=== PATIENT | male | born 1945 | race Caucasian/White ===

== ENCOUNTER 2020-12-07 14:09 | Outpatient (CLI) | payer MEDICARE, SELFPAY ==
--- NOTE | ~2020-12-07 | XR_ITS ---
XR hip BI wo pelvis DATE: 12/07/2020 14:41 INDICATION: Posterior right hip pain. No known injury. TECHNIQUE: AP and lateral views of each hip COMPARISON: 04/15/2018 right hip MRI FINDINGS: Moderate osteopenia. Subtle chondrocalcinosis of the right hip is suggested. Mild right hip osteoarthritis. No fracture or dislocation, avascular necrosis or bone destruction of either hip is evident. Normal alignment at the pubic symphysis and sacroiliac joints. IMPRESSION: Moderate osteopenia Mild right hip osteoarthritis Reviewed, dictated and finalized at location A.
== END 2020-12-07 14:10 | disposition home or self-care (01) ==
LOC: CHSIMG 14:13
PROVIDERS: PCP Internal Medicine; Visit Provider Internal Medicine
DX: M25.552 Pain in left hip (principal); M25.551 Pain in right hip
CPT/HCPCS: 73521

== ENCOUNTER 2020-12-27 09:28 | Outpatient (CLI) | payer MEDICARE, SELFPAY ==
[2020-12-27 09:41] LABS: Mean Corpuscular HGB Conc 33.3 g/dL (32.0-36.0); Mean Corpuscular Hemoglobin 31.6 pg (27.0-31.0); Mean Corpuscular Volume 94.7 fL (78.0-102.0); Mean Platelet Volume 9.8 fl (8.7-11.0); Platelet Count Result 194 K/mm3 (150-420); Red Blood Count 4.75 M/mm3 (4.70-6.10); Red Cell Distribution Width 13.4 % (11.6-14.4); White Blood Count 3.7 K/mm3 (4.8-10.8)
[2020-12-27 10:14] LABS: Band Neutrophils Percent 1 % (0-6); Basophils Percent Manual 0 % (0-1); Eosinophils Absolute Manual 0.18 K/mm3 (0.02-0.5); Eosinophils Percent Manual 5 % (1-6); Lymphocytes Absolute Manual 1.33 K/mm3 (1.1-4.5); Lymphocytes Percent Manual 36 % (18-44); Monocytes Percent Manual 11 % (3-9); Neutrophils Absolute Manual 1.77 K/mm3 (1.3-6.7); Neutrophils Percent Manual 47 % (46-73); Platelet Estimate Adequate (Adequate); Total Cells Counted 100
[2020-12-27 10:19] LABS: Alanine Aminotransferase 28 U/L (16-63); Albumin Level 3.8 g/dL (3.4-5.0); Alkaline Phosphatase 83 U/L (46-116); Anion Gap 9 mmol/L (8-16); Aspartate Amino Transferase 17 U/L (15-37); Bilirubin,Total 0.6 mg/dL (0.00-1.00); Blood Urea Nitrogen 20 mg/dL (7-18); Carbon Dioxide 28 mmol/L (21-32); Chloride 102 mmol/L (98-108); Cholesterol 191 mg/dL (0-200); Estimated Glomerular Filt Rate > 60; Glucose 100 mg/dL (70-99); HDL Direct 75 mg/dL (40-60); LDL Cholesterol Calculated 107 mg/dL (<130); Osmolality Calculated 290 mOsm/kg (285-295); Prostate Specific Antigen 2.5 ng/mL (< OR = 4.0); Sodium 139 mmol/L (136-145); Total Protein 7.2 g/dL (6.4-8.2); Triglycerides 43 mg/dL (0-150)
[2020-12-27 10:20] LABS: CRP < 0.2 mg/dL (0.0-0.9)
[2020-12-27 10:48] LABS: Erythrocyte Sedimentation Rate 12 mm/hr (0-20)
[2020-12-31 19:45] LABS: Testosterone Free 83.7 pg/mL (30.0-135.0); Testosterone Total 675 ng/dL (250-1100)
== END 2020-12-27 09:29 | disposition home or self-care (01) ==
LOC: CHSLAB 09:30
PROVIDERS: PCP Internal Medicine; Visit Provider Internal Medicine
DX: Z00.00 Encounter for general adult medical examination without abnormal findings (principal); N52.9 Male erectile dysfunction, unspecified; Z12.5 Encounter for screening for malignant neoplasm of prostate; M25.551 Pain in right hip
CPT/HCPCS: 36415; 80053; 80061; 84153; 84402; 84403; 85025; 85652; 86140; G0103

== ENCOUNTER 2021-01-06 10:04 | Outpatient (RCR) | payer MEDICARE, SELFPAY ==
--- NOTE | 2021-01-06 12:06 | PTOPEVAL ---
Thank you for referring Noe Foreman to [facility] The patient is scheduled to be seen for therapy? ____x/week for ___ weeks. Please review, sign, date and return this plan of care PAOLO. I agree with and certify that the following plan of care is medically necessary. Referring Physician Date Admitting Provider: Attending Provider: Karen Reed MD Referring Provider: *PT Outpatient Evaluation Start: 01/06/21 10:02 Freq: Status: Active Protocol: Document 01/06/21 10:02 ACR (Rec: 01/06/21 12:01 ACR [id number]) Therapy Assessment Status Assessment Status Assessment Status Evaluation Evaluation Information Problem Diagnosis LBP Onset 12/06/20 Subjective Information Patient states that he has a Query Text:As Reported By Patient/ lot of arthritis and he Family started having hip pain that is really bothering him. He reports some buttock pain. Patient is an active male who enjoys golfing and running. He also has some rib pain when he is running so he has stopped at this time. He states that getting up out of a chair, golfing, running, standing for a prolonged period of time. He also states that when his hip flares up he is unable to walk because it feels his hip has given out . Stiffness is his biggest complaint from the patient at this time. Prior Level of Function Activity Level (Last 3 Months) Occupation retired Hand Dominance Right Activity of Daily Living Ability Independent Indoor/Home Mobility Independent Community Mobility Independent Stairs Ability Independent Functional Cognition (Planning, Shopping Independent , Taking Medications) Cooking Yes Cleaning Yes Laundry Yes Shopping Yes Driving Yes Pain Assessment Timing of Pain Assessment Timing of Pain Assessment Assessment Pain Scale Pain Scale Used Numeric (1 - 10) Self Report Pain Assessment Right Hip(s) Reported Pain Level 3 Greatest Pain Intensity 10 Pain Score Pain Score 3: Self Report Interventions Used Interventions Used By Clinicians
--- NOTE | 2021-02-02 17:01 | PCPTNOTE ---
Patient is a 75 year old male that participated in 3 visits for low back pain. The patient was given an extensive HEP and would like to be discharged at this time. Please refer to most recent treatment note for discharge status. Thank you, Haily Lau DPT
== END 2021-01-12 09:14 | disposition home or self-care (01) ==
LOC: CHSPT 10:04
PROVIDERS: PCP Internal Medicine; Visit Provider Internal Medicine
DX: M54.5 Low back pain (principal); M25.552 Pain in left hip; M25.551 Pain in right hip
CPT/HCPCS: 97110; 97161

== ENCOUNTER → 2021-01-30 15:05 | Outpatient (CLI) | payer MEDICARE, SELFPAY ==
--- NOTE | ~2021-01-30 | MR_ITS ---
EXAMINATION: MR lumbar spine wo con DATE: 01/30/2021 16:01 INDICATION: Low back pain. TECHNIQUE: Magnetic resonance imaging (MRI) of the lumbar spine was performed without intravenous con trast. Sequences included sagittal T2-weighted FSE, sagittal T2-weighted FS FSE, sagittal T1-weighted FSE, and axial T2-weighted FSE. COMPARISON: Lumbar spine MRI 04/15/2018 FINDINGS: There is 8 degrees levocurvature of lumbar spine. There is 3 mm retrolisthesis of T10 on T1 1, T11 on T12, and T12 on L1. There is 3 mm retrolisthesis of L1 on L2, 4 mm retrolisthesis of L2 on L3, L3 on L4, and L4 on L5, and 5 mm anterolisthesis of L5 on S1. There is a chronic left L5 pars def ect. Vertebral body heights are normal. There is severely decreased disc height at T10-T11, moderatel y decreased disc height at T11-T12, severely decreased disc height from T12-L1 through L3-L4 and mild ly decreased disc height at L4-L5 and L5-S1. There is severe central canal stenosis at T10-T11 and T1 1-T12. The distal spinal cord signal intensity is normal. The conus medullaris is at L1-L2. The follo wing disc levels are specifically discussed: L1-L2: The disc is bulging. There is moderate right and mild left facet joint osteoarthritis. There i s mild bilateral neural foraminal stenosis. There is mild central canal stenosis. L2-L3: The disc is bulging. There is moderate bilateral facet joint osteoarthritis. There is moderate right and mild left neural foraminal stenosis. There is mild central canal stenosis. L3-L4: The disc is bulging. There is severe right and mild left facet joint osteoarthritis. There is moderate right and mild left neural foraminal stenosis. There is mild central canal stenosis. L4-L5: The disc is bulging. There is severe bilateral facet joint osteoarthritis. There is mild right and moderate left neural foraminal stenosis. There is mild central canal stenosis. There is asymmetr ic stenosis of right lateral recess. L5-S1: The disc is bulging. There is severe bilateral facet joint osteoarthritis. There is mild bilat eral neural foraminal stenosis. There is no central canal stenosis. IMPRESSION: 1. Severe lumbar and lower thoracic spondylosis with worsened central canal stenosis in lower thoraci c spine from 04/15/2018. 2. Chronic left L5 pars defect. Reviewed, dictated and finalized at location A. IMPRESSION: 1. Severe lumbar and lower thoracic spondylosis with worsened central canal delilah nosis in lower thoracic spine from 04/15/2018. 2. Chronic left L5 pars defect.
== END ==
PROVIDERS: PCP Internal Medicine; Visit Provider Internal Medicine
DX: M54.5 Low back pain (principal); M25.552 Pain in left hip; M25.551 Pain in right hip; M47.814 Spondylosis without myelopathy or radiculopathy, thoracic region; M47.816 Spondylosis without myelopathy or radiculopathy, lumbar region; M43.8X6 Other specified deforming dorsopathies, lumbar region
CPT/HCPCS: 72148

== ENCOUNTER → 2021-01-31 15:24 | Outpatient (CLI) | payer MEDICARE, SELFPAY ==
--- NOTE | ~2021-01-31 | MR_ITS ---
EXAMINATION: MR hip RT wo con DATE: 01/31/2021 16:24 INDICATION: Right hip pain TECHNIQUE: Magnetic resonance imaging (MRI) of the right hip was performed without intravenous contr ast. Sequences included full-field axial PD-weighted FS FSE and T1-weighted FSE, coronal of the pelvi s with PD-weighted FS FSE, small field of view of the right hip with axial PD-weighted FS FSE, sagit herbie PD-weighted FS FSE and coronal PD weighted FS FSE. Additional radial T1-weighted FGR oriented ort hogonal to the acetabular rim were obtained for evaluation of the labrum. COMPARISON: Left and right hip MRI studies dated 04/15/2018 FINDINGS: Bones/labrum/cartilage: Alignment is normal. No fracture, avascular necrosis or pathologic marrow replacing process. There a re couple small low signal intensity bone islands at the bilateral femoral heads. There is diffuse de generative tearing of the right acetabular labrum. Moderate right hip osteoarthritis with nonuniform joint space narrowing with partial partial-thickness cartilage loss most prominent along the anterosu perior, posterosuperior and posterior margins of the joint space. Subarticular cystic changes are pre sent along the anterosuperior acetabulum and superolateral rim of the acetabulum. There is additional cystic change at the anterosuperior basocervical region of the proximal right femur. Similar changes are suggested at the left hip but not diagnostically evaluated on the larger field of view images of the pelvis. Severe lumbar spondylosis. Fluid: Symmetric physiologic amount of fluid within both hip joints. Soft tissues: Normal and symmetric muscle bulk and signal in the pelvis and visualized proximal thighs. Bilateral i liopsoas tendons are normal. Relatively symmetric moderate tendinopathy, mild partial tears and assoc iated mild ischial bursitis at the ischial origins of the bilateral proximal hamstring tendons. The b ilateral iliopsoas tendons are normal. Mild tendinopathy and partial tear of the distal right gluteus medius tendon with asymmetric retraction of the myotendinous junction which is located approximately 2.8 cm proximal to the lateral facet insertions. There is also minimal underlying right gluteus medi us bursitis. Mild left gluteus minimus tendinopathy with likely mild partial tear suggested on the la rger field of view images, better appreciated on the prior MRI. Mild sigmoid diverticulosis without a djacent inflammatory change to suggest diverticulitis. Mild prostatomegaly.. Limited evaluation of visceral organs of the pelvis is otherwise unremarkable. No pathologically enlarged pelvic/inguinal lymphadenopathy. IMPRESSION: 1. Moderate right hip osteoarthritis with diffuse labral degeneration. 2. Bilateral moderate tendinopathy and mild partial tears at the origins of the bilateral hamstring t endons with associated mild bilateral ischial bursitis. 3. Mild tendinopathy and mild partial tear of the right gluteus medias tendon. Reviewed, dictated and finalized at location A. IMPRESSION: 1. Moderate right hip osteoarthritis with diffuse labral degeneration. 2. Bilateral moderate tendinopathy and mild partial tears at the origins of the bilateral hamstring tendons with associated mild bilateral ischial bursitis. 3. Mild tendinopathy and mild partial tear of the right gluteus medias tendon.
== END ==
PROVIDERS: PCP Internal Medicine; Visit Provider Internal Medicine
DX: M16.11 Unilateral primary osteoarthritis, right hip (principal); S76.301A Unspecified injury of muscle, fascia and tendon of the posterior muscle group at thigh level, right thigh, initial encounter; S76.011A Strain of muscle, fascia and tendon of right hip, initial encounter
CPT/HCPCS: 73721

== ENCOUNTER → 2021-02-01 17:13 | Outpatient (CLI) | payer MEDICARE, SELFPAY ==
--- NOTE | ~2021-02-01 | MR_ITS ---
EXAMINATION: MR hip LT wo con DATE: 02/01/2021 19:33 INDICATION: Left hip pain TECHNIQUE: Magnetic resonance imaging (MRI) of the left hip was performed without intravenous contra st. Sequences included full-field axial PD-weighted FS FSE and T1-weighted FSE, coronal of the pelvis with PD-weighted FS FSE, small field of view of the left hip with axial PD-weighted FS FSE, sagitta l PD-weighted FS FSE and coronal PD weighted FS FSE. Additional radial T1-weighted FGR oriented ortho gonal to the acetabular rim were obtained for evaluation of the labrum. COMPARISON: None FINDINGS: Bones/labrum/cartilage: Alignment is normal. No fracture, avascular necrosis or pathologic marrow replacing process. There i s mild cystic change at the left anterosuperior femoral head/neck junction. Additional cystic change more distally at the cephalad basocervical region of the proximal right femur. Left hip osteoarthriti s with nonuniform cartilage loss resulting in moderate joint space narrowing at the anterosuperior an d posterosuperior margins of the joint space. Subarticular cystic changes present along the superolat eral and posterior superior rim of the left acetabulum. There is associated diffuse degenerative tear ing of the left acetabular labrum. Similar though slightly less severe changes are suggested but not diagnostically evaluated at the contralateral right hip on the larger field of view images. Lumbar sp ondylosis with severe right-sided disc height loss and change of prior vascular degenerative endplate changes at L3-L4 and severe bilateral facet osteoarthritis at L4-L5 and L5-S1. Fluid: Symmetric physiologic amount of fluid within both hip joints. Mild bilateral ischial bursitis, left g reater than right. Soft tissues: Normal and symmetric muscle bulk and signal in the pelvis and visualized proximal thighs. The bilater al iliopsoas tendons are normal. The left gluteus medius tendon is normal. Mild tendinopathy and smal l partial tear at the insertion of the left gluteus minimus tendon with minimal associated bursitis. At the contralateral right hip there is mild right gluteus medius and minimus tendinopathy with small partial-thickness thickness tear involving a portion of the tendon attached to the lateral facet res ulting in retraction of a portion of the myotendinous junction which is positioned approximately 3 cm proximal to the lateral facet. Interval progression of mild right-sided and moderate left-sided tend inopathy at the proximal hamstring tendon origins with new small partial-thickness tear at the right ischial tuberosity as well as of a more severe partial tear at the left ischial tuberosity origin. Mi ld prostatomegaly. Limited evaluation of visceral organs of the pelvis is otherwise unremarkable. No pathologically enlarged pelvic/inguinal lymphadenopathy. IMPRESSION: 1. No significant change in moderate osteoarthritis at the left hip with diffuse degenerative tearing of the left acetabular labrum. 2. Similar slightly less severe changes suggested at the right hip on the larger field of view images . 3. Unchanged partial tears of the left gluteus minimus and right gluteus medius tendons. 4. Mild bilateral ischial bursitis with interval progression of tendinopathy and partial tears at the ischial tuberosity origins of the bilateral proximal hamstring tendons, mild on the right and modera te severity on the left. Reviewed, dictated and finalized at location A. IMPRESSION: 1. No significant change in moderate osteoarthritis at the left hip with diffus e degenerative tearing of the left acetabular labrum. 2. Similar slightly less severe changes suggested at the right hip on the large r field of view images. 3. Unchanged partial tears of the left gluteus m
== END ==
PROVIDERS: PCP Internal Medicine; Visit Provider Internal Medicine
DX: M54.5 Low back pain (principal); M25.552 Pain in left hip; M25.551 Pain in right hip; M16.0 Bilateral primary osteoarthritis of hip; S73.192A Other sprain of left hip, initial encounter; S76.812A Strain of other specified muscles, fascia and tendons at thigh level, left thigh, initial encounter; M71.552 Other bursitis, not elsewhere classified, left hip
CPT/HCPCS: 73721

== ENCOUNTER 2021-06-06 10:54 | Outpatient (CLI) | payer MEDICARE, SELFPAY ==
--- NOTE | ~2021-06-06 | XR_ITS ---
EXAMINATION: XR chest 2V EXAM DATE: 06/06/2021 11:34 INDICATION: PreOp testing, no chest complaints. Having back surgery. TECHNIQUE: Frontal and lateral projections of the chest obtained and reviewed. Comparison is made to prior examination from 06/16/1930. FINDINGS: Right midlung zone granuloma. The lungs are otherwise clear. There are no pleural effusion s. The cardiomediastinal silhouette is within normal limits. There is no pneumothorax suspected. T he bones and soft tissues are unremarkable. IMPRESSION: No acute cardiopulmonary findings. Reviewed, dictated and finalized at location A.
[2021-06-06 11:15] LABS: Basophils Absolute Auto 0.03 K/mm3 (0.00-0.10); Basophils Percent Auto 0.6 % (0.0-1.0); Eosinophils Absolute Auto 0.22 K/mm3 (0.02-0.50); Eosinophils Percent Auto 4.4 % (1.0-6.0); Hematocrit 42.9 % (37.0-46.0); Hemoglobin 14.7 g/dL (12.4-15.3); Immature Granulocyte Absolute 0.01 K/mm3 (0.00-0.00); Immature Granulocyte Percent A 0.2 % (0.0-0.0); Lymphocytes Absolute Auto 1.37 K/mm3 (1.10-4.50); Lymphocytes Percent Auto 27.3 % (18.0-42.0); Mean Corpuscular HGB Conc 34.3 g/dL (32.0-36.0); Mean Corpuscular Hemoglobin 32.7 pg (27.0-31.0); Mean Corpuscular Volume 95.5 fL (78.0-102.0); Mean Platelet Volume 10.4 fl (8.7-11.0); Monocytes Absolute Auto 0.62 K/mm3 (0.10-0.90); Monocytes Percent Auto 12.4 % (2.0-11.0); Neutrophils Absolute Auto 2.8 K/mm3 (1.7-7.2); Neutrophils Percent Auto 55.1 % (50.0-70.0); Platelet Count Result 196 K/mm3 (150-420); Red Blood Count 4.49 M/mm3 (4.70-6.10); Red Cell Distribution Width 12.9 % (11.6-14.4)
--- NOTE | 2021-06-06 11:25 | ECG_ITS ---
Measurements Intervals [place] Rate: 50 P: 65 NV: 182 QRS: 18 QRSD: 100 T: 24 QT: 410 QTc: 376 Interpretive Statements SINUS BRADYCARDIA BORDERLINE ECG Electronically Signed On 06-06-2021 11:27:50 CDT by Arun Dodge D.O.
[2021-06-06 11:29] LABS: Partial Thromboplastin Time 27.6 SEC (23.90-30.70); Prothrombin Time 10.6 Seconds (9.50-12.10)
[2021-06-06 12:06] LABS: Alanine Aminotransferase 35 U/L (16-63); Albumin Level 3.8 g/dL (3.4-5.0); Alkaline Phosphatase 80 U/L (46-116); Anion Gap 7 mmol/L (8-16); Aspartate Amino Transferase 21 U/L (15-37); Bilirubin,Total 0.6 mg/dL (0.00-1.00); Blood Urea Nitrogen 20 mg/dL (7-18); Calcium 9.1 mg/dL (8.5-10.1); Carbon Dioxide 31 mmol/L (21-32); Chloride 101 mmol/L (98-108); Estimated Glomerular Filt Rate > 60; Glucose 84 mg/dL (70-99); Osmolality Calculated 289 mOsm/kg (285-295); Potassium 4.4 mmol/L (3.5-5.1); Sodium 139 mmol/L (136-145); Total Protein 6.9 g/dL (6.4-8.2)
== END 2021-06-06 10:55 | disposition home or self-care (01) ==
LOC: CHSLAB 10:58
PROVIDERS: PCP Internal Medicine
DX: Z01.818 Encounter for other preprocedural examination (principal); Z79.01 Long term (current) use of anticoagulants
CPT/HCPCS: 36415; 71046; 80053; 85025; 85610; 85730; 93005

== ENCOUNTER 2021-07-01 09:53 | Emergency (ER) | payer MEDICARE, SELFPAY ==
[2021-07-01 10:05] VITALS: BP 172/90; PULSE 68; RESP 16; TEMP 36.1; O2SAT 98
--- NOTE | 2021-07-01 10:33 | ED.BACK ---
HPI - Back Pain/Injury General Chief Complaint: Back Pain/Injury Stated Complaint: lower Back pain/leg pain Source: patient Mode of arrival: ambulatory Limitations: no limitations History of Present Illness HPI Narrative: this is a 75-year-old gentleman that presents with some hip pain has chronic back pain was scheduled for a laminectomy but his primary care physician felt this was more in the hip area and canceled back surgery the patient has been having back pain was some prescribed p.o. steroids but decided not to take the medicine because he felt it was not helping and schedule an appointment with a chiropractor and apparently symptoms had worsened. Rates his pain at about a 6/10 radiating into his right gluteal area and to his lower leg into his lower foot has good strong pulses on the right leg with no known injury. MD elicited complaint: back pain Pertinent past history: prior back pain and neurological deficit Onset (ago): month(s) Timing: constant Severity: moderate Pain scale (0-10): 6 Similar Symptoms Previously: Yes Quality: dull and tingling Location: lumbar spine and right lower back Radiation: right upper leg and right leg below the knee Exacerbating factors: movement and walking Relieving factors: immobilization Related Data Allergies Allergy/AdvReac Type Severity Reaction Status Date / Time No Known Allergies Allergy Verified 07/01/21 10:25 Review of Systems Review of Systems: All systems reviewed & are unremarkable except as noted in HPI and below PMFSH Past Medical History Medical History Chronic back pain Social History Social History Smoking status: Never smoker Alcohol intake: current Exam Const: General: no acute distress and alert Orientation/consciousness: patient oriented x3 HENMT: Head: normal to inspection Eyes: Conjunctivae: conjunctivae normal Pupils: Equal, round and reactive pupils present Neck: Neck: normal visual inspection, no lymphadenopathy and no meningeal signs Chest: Chest palpation & inspection: normal inspection of the chest Resp: Effort & Inspection: normal respiratory effort Auscultation: clear to auscultation bilaterally Cardio: Rate: regular rate Rhythm: regular rhythm GI: GI Palp: Yes Soft to palpation Back/Spine/Pelvis: Back: no CVA tenderness Skin: General skin exam: normal color Rashes: no rashes Extrem: General: normal to inspection and no pedal edema Other: no saddle paresthesias, has a positive straight leg raising test on the right with some tenderness in his right lower paravertebral area and gluteal area with palpation and movement. Psych: Mental Status: mental status grossly normal Affect: normal affect and Anxious affect present Attitude: cooperative Course Course Emergency Course: Patient received IM steroid injection with Depo-Medrol and advised to take medicine that was prescribed from our ER and to follow up with his primary care physician. Vital Signs Vital signs: Vital Signs Temperature 36.1 C L 07/01/21 10:05 Pulse Rate 68 07/01/21 10:05 Respiratory Rate 16 07/01/21 10:05 Blood Pressure 172/90 H 07/01/21 10:05 Pulse Oximetry 98 07/01/21 10:05 Temperature 36.1 C L 07/01/21 10:05 Pulse Rate 68 07/01/21 10:05 Respiratory Rate 16 07/01/21 10:05 Blood Pressure 172/90 H 07/01/21 10:05 Pulse Oximetry 98 07/01/21 10:05 Critical Care Time Critical Care Time Critical Care Time: No Discharge Plan Discharge Clinical Impression: Lumbar radiculopathy, Hip pain Patient Disposition: Home, Self-Care Condition: Stable Instructions: Antibiotic Form, Acute Low Back Pain (ED), Hip Pain (ED) Additional Instructions: take medicine as prescribed and follow-up with primary care physician soon as possible for further evaluation treatment. Prescriptions: New oxycodone-acetamino
[2021-07-01] MEDS: methylPREDNISolone ACETATE 40 MG/ML VIAL 80 MG IM (10:44)
[2021-07-01 11:05] VITALS: BP 173/93; PULSE 92; RESP 20; TEMP 36.6; O2SAT 96
== END 2021-07-01 11:22 | disposition home or self-care (01) ==
PROVIDERS: Emergency Provider Emergency Medicine; PCP Internal Medicine
DX: M54.16 Radiculopathy, lumbar region (principal); M25.551 Pain in right hip
CPT/HCPCS: 96372; 99283; J1030

== ENCOUNTER 2023-03-27 13:25 | Outpatient (CLI) | payer MEDICARE, SELFPAY ==
--- NOTE | ~2023-03-27 | XR_ITS ---
EXAM: XR hand LT min 3V DATE: 03/27/2023 14:10 HISTORY: injury left hand/ATTM 5TH DIGIT INTO PALM . COMPARISON: None available. FINDINGS: Normal mineralization. No fracture or dislocation. No lytic or blastic lesion. Mild scatte red degenerative change. No erosion or periosteal change. Soft tissues within normal limits. IMPRESSION: No acute osseous finding in the left hand. Reviewed, dictated and finalized at location K.
[2023-03-27 13:55] LABS: Hematocrit 40.7 % (37.0-46.0); Hemoglobin 13.7 g/dL (12.4-15.3); Mean Corpuscular HGB Conc 33.7 g/dL (32.0-36.0); Mean Corpuscular Hemoglobin 32.1 pg (27.0-31.0); Mean Corpuscular Volume 95.3 fL (78.0-102.0); Mean Platelet Volume 10.9 fl (8.7-11.0); Platelet Count Result 153 K/mm3 (150-420); Red Blood Count 4.27 M/mm3 (4.70-6.10); Red Cell Distribution Width 13.2 % (11.6-14.4); White Blood Count 3.7 K/mm3 (4.8-10.8)
[2023-03-27 13:56] LABS: Appearance Urine Clear (Clear); Bilirubin Urine Negative (Negative); Blood Urine Negative (Negative); Color Urine Light Yellow (Yellow); Glucose Urine UA Negative (Negative); Ketones Urine Negative (Negative); Leukocyte Esterase Ur Negative (Negative); Nitrate Urine Negative (Negative); Protein Urine Negative (Negative); Specific Grav Ur 1.015 (1.010-1.020); Urobilinogen Urine 0.2 mg/dL (0.2-1.0)
[2023-03-27 13:59] LABS: Add Urine Microscopic? NO
[2023-03-27 14:07] LABS: Band Neutrophils Percent 0 % (0-6); Basophils Absolute Manual 0.03 K/mm3 (0-0.1); Basophils Percent Manual 1 % (0-1); Eosinophils Absolute Manual 0.11 K/mm3 (0.02-0.5); Eosinophils Percent Manual 3 % (1-6); Lymphocytes Absolute Manual 0.96 K/mm3 (1.1-4.5); Lymphocytes Percent Manual 26 % (18-44); Monocytes Absolute Manual 0.25 K/mm3 (0.1-0.90); Monocytes Percent Manual 7 % (3-9); Neutrophils Absolute Manual 2.33 K/mm3 (1.3-6.7); Neutrophils Percent Manual 63 % (46-73); Platelet Estimate Adequate (Adequate); Total Cells Counted 100
[2023-03-27 15:28] LABS: Alanine Aminotransferase 31 U/L (16-63); Albumin Level 3.9 g/dL (3.4-5.0); Alkaline Phosphatase 86 U/L (46-116); Anion Gap 8 mmol/L (8-16); Aspartate Amino Transferase 24 U/L (15-37); Bilirubin,Total 0.6 mg/dL (0.00-1.00); Blood Urea Nitrogen 20 mg/dL (7-18); Calcium 8.9 mg/dL (8.5-10.1); Carbon Dioxide 27 mmol/L (21-32); Chloride 104 mmol/L (98-108); Cholesterol 169 mg/dL (0-200); Estimated Glomerular Filt Rate > 60; Free T4 Free Thyroxine 0.87 ng/dL (0.76-1.46); Glucose 93 mg/dL (70-99); HDL Direct 75 mg/dL (40-60); LDL Cholesterol Calculated 86 mg/dL (<130); Osmolality Calculated 290 mOsm/kg (285-295); Potassium 4.7 mmol/L (3.5-5.1); Prostate Specific Antigen 2.5 ng/mL (< OR = 4.0); Sodium 139 mmol/L (136-145); Thyroid Stimulating Hormone 2.48 uIU/mL (0.36-3.74); Total Protein 7.2 g/dL (6.4-8.2); Triglycerides 41 mg/dL (0-150)
[2023-03-27 15:42] LABS: CRP < 0.5 mg/dL (0.0-0.9)
[2023-03-27 15:57] LABS: Erythrocyte Sedimentation Rate 6 mm/hr (0-20)
[2023-03-31 12:28] LABS: Testosterone Free 57.7 pg/mL (30.0-135.0); Testosterone Total 614 ng/dL (250-1100)
== END 2023-03-27 13:26 | disposition home or self-care (01) ==
LOC: CHSLAB 13:30
PROVIDERS: PCP Internal Medicine; Visit Provider Internal Medicine
DX: M54.07 Panniculitis affecting regions of neck and back, lumbosacral region (principal); B35.1 Tinea unguium; E78.2 Mixed hyperlipidemia; I10 Essential (primary) hypertension; Z12.5 Encounter for screening for malignant neoplasm of prostate; S69.92XA Unspecified injury of left wrist, hand and finger(s), initial encounter
CPT/HCPCS: 36415; 73130; 80053; 80061; 81003; 84153; 84402; 84403; 84439; 84443; 85025; 85652; 86140; G0103

== ENCOUNTER 2023-03-28 10:40 | Outpatient (CLI) | payer MEDICARE, SELFPAY ==
--- NOTE | ~2023-03-28 | XR_ITS ---
EXAMINATION: XR hip BI wo pelvis DATE: 03/28/2023 11:35 INDICATION: Right hip pain. TECHNIQUE: 2 views of each hip were obtained. COMPARISON: Hip radiographs 12/07/2020 FINDINGS: Bone alignment is normal. No fracture. There is moderate osteoarthritis of the hips. IMPRESSION: 1. Moderate osteoarthritis of the hips. Reviewed, dictated and finalized at location L.
--- NOTE | ~2023-03-28 | XR_ITS ---
Lumbosacral Spine: AP and lateral views Clinical History: Pain Findings: The normal lordotic curve is maintained. No fracture evident. 3 mm retrolisthesis of L3 ove r L4 noted. Probable 8 mm anterolisthesis of L5 over S1. There is severe degenerative disc narrowing at L1-L2, L2-L3, L3-L4. There is advanced facet arthropathy throughout the lumbar spine. The sacroili ac joints are normally outlined. Impression: Severe degenerative spondylosis, as above. 3 mm retrolisthesis of L3 over L4. 8 mm anterolisthesis of L5 over S1. Reviewed, dictated and finalized at location M. Impression: Severe degenerative spondylosis, as above. 3 mm retrolisthesis of L3 over L4. 8 mm anterolisthesis of L5 over S1.
--- NOTE | ~2023-03-28 | XR_ITS ---
Thoracic spine: Clinical Indication: Back pain AP and lateral views were performed. No fracture is seen. There is 17 degrees dextroscoliosis of the thoracic spine. There is moderate to advanced degenerative disc narrowing throughout most of the mid to lower thoracic spine.. Paravertebr al soft tissues appear normal. Impression: 17 degree dextroscoliosis. Extensive moderate to advanced degenerative disc narrowing throughout the thoracic spine, especially the mid to lower portion. No fracture or subluxation evident. Reviewed, dictated and finalized at location . Impression: 17 degree dextroscoliosis. Extensive moderate to advanced degenerative disc narrowing throughout the thora cic spine, especially the mid to lower portion. No fracture or subluxation evident.
== END 2023-03-28 10:41 | disposition home or self-care (01) ==
LOC: CHSIMG 10:42
PROVIDERS: PCP Internal Medicine; Visit Provider Internal Medicine
DX: M54.50 Low back pain, unspecified (principal); S69.92XA Unspecified injury of left wrist, hand and finger(s), initial encounter; M43.06 Spondylolysis, lumbar region; M41.84 Other forms of scoliosis, thoracic region; M17.0 Bilateral primary osteoarthritis of knee
CPT/HCPCS: 72070; 72100; 73521

== ENCOUNTER 2023-07-01 18:27 | Outpatient (CLI) | payer MEDICARE, SELFPAY ==
[2023-07-01 18:49] LABS: Hematocrit 40.6 % (37.0-46.0); Hemoglobin 13.8 g/dL (12.4-15.3); Mean Corpuscular Hemoglobin 32.5 pg (27.0-31.0); Mean Corpuscular Volume 95.8 fL (78.0-102.0); Platelet Count Result 200 K/mm3 (150-420); Red Blood Count 4.24 M/mm3 (4.70-6.10); Red Cell Distribution Width 12.9 % (11.6-14.4); White Blood Count 5.6 K/mm3 (4.8-10.8)
== END 2023-07-01 18:28 | disposition home or self-care (01) ==
PROVIDERS: PCP Internal Medicine; Visit Provider Internal Medicine
DX: D70.9 Neutropenia, unspecified (principal)
CPT/HCPCS: 36415; 85027

== ENCOUNTER 2024-12-06 10:21 | Emergency (ER) | payer MEDICARE, SELFPAY ==
--- OUTSIDE RECORDS SUMMARY | 2024-12-06 10:24 | XMS_ITS | Clinical Summary ---
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
--- OUTSIDE RECORDS SUMMARY | 2024-12-06 10:24 | XMS_ITS | Clinical Summary ---
Author Organization [facility] Address [address] [place] [address] Care Team Providers Care Line Service Attendant Name Role Phone Unavailable Primary Care Provider Unavailabl e Source Comments [facility],non-owned Affiliates and Associated Physician Practices is amultiple site organization consisting of ambulatory clinics and hospital sitesin [place], [place], [place] and [place]. This disclosure is being madepursuant to the Care Everywhere program and may not contain all information available regarding this patient. Last updated 18.[facility] [employer] Social History Tobacco Use Types Packs/Day Years Used Date Smoking Tobacco: Never Assessed Sex and Gender Information Value Date Recorded Sex Assigned at Not on file Legal Sex Male 1:27 PM CDT Gender Identity Not on file Sexual Orientation Not on file Plan of Treatment Health Maintenance Due Date Last Done Comments HEPATITIS C SCREENING 12/21/1965 DTAP/TDAP/TD VACCINES (1 - Tdap) 12/25/1966 PNEUMOCOCCAL VACCINE 50+ (1 of 1 - PCV) 12/25/1997 ZOSTER VACCINE (1 of 2) 12/25/1997 Respiratory Syncytial Virus (RSV) Vaccine Pt: or over 60 yrs (1 - 1-dose 75+ series) 12/25/2022 COVID-19 VACCINE ( - 2023-2 5 season) 2024 DEPRESSION SCREENING 08/26/2024 INFLUENZA VACCINE (Season Ended) 2025 HEPATITIS B VACCINE Aged Out No longe r eligible based on patient's age to complete this topic HIB VACCINE Aged Out No longer eligi ble based on patient's age to complete this topic HPV VACCINE Aged Out No longer eligi ble based on patient's age to complete this topic MENINGOCOCCAL (Group B) VACC INE SHARED DECISION-MAKING Aged Out No longer eligibl e based on patient's age to complete this topic MENINGOCOCCAL GROUPS A/C/Y/W VACCINE Aged Out No longer eligible b ased on patient's age to complete this topic
--- OUTSIDE RECORDS SUMMARY | 2024-12-06 10:24 | XMS_ITS | Encounter Summary ---
Author Organization [employer] Address [address] [place] [address] Care Team Providers Care Workers Compensation Claims Adjuster Name Role Phone Unavailable Primary Care Provider Unavailabl e Encounter Details Date Type Department Care Team (Late st Contact Info) Description 12/15/1998 Outpatient Historical [facility] 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
--- OUTSIDE RECORDS SUMMARY | 2024-12-06 10:24 | XMS_ITS | Clinical Summary ---
Author Organization [facility] Address [address] [place] [address] Care Team Providers Care Field Marketing Director Name Role Phone Karen Reed MD Primary Care Provider [phone] Active Problems Problem Noted Date Diagnosed Date Lumbar radiculopathy 02/02/2022 Social History Tobacco Use Types Packs/Day Years Used Date Smoking Tobacco: Never Assessed Sex and Gender Information Value Date Recorded Sex Assigned at Not on file Legal Sex Male 4:09 PM CDT Gender Identity Not on file Sexual Orientation Not on file Plan of Treatment Health Maintenance Due Date Last Done Comments Hepatitis C 12/25/1965 Zoster Vaccines (1 of 2) 12/25/1997 Annual Medicare Wellness Visit 12/25/2012 Pneumococcal Vaccine: 50+ Years (1 of 1 - PCV) 12/25/2012 RSV Immunization or 60+ Years (1 - 1-dose 75+ series) 12/25/2022 COVID-19 Vaccine (4 - 2023-2 5 season) 2024 05/23/2021, 10/18/2020, 09/27/2020 DTaP, Tdap and Td Vaccines ( 2 - Td or Tdap) 08/16/2026 08/16/2016 Meningococcal B Vaccine Aged Out No l onger eligible based on patient's age to complete this topic Meningococcal Vaccine Aged Out No jana atul eligible based on patient's age to complete this topic RSV Immunizations Under 20 Months Aged Out No longer eligible b ased on patient's age to complete this topic Insurance MEDICARE [facility] Care Teams Field Marketing Director Relationship Specialty Start Date End Date Karen Reed MD [address] [place] [address] PCP - General INTERNAL MEDICINE 02/02/22
--- OUTSIDE RECORDS SUMMARY | 2024-12-06 10:24 | XMS_ITS | Continuity of Care Document ---
Author Organization [facility] Address [address] [place] [address] Phone Care Team Providers Care Bumboater Name Role Phone Perfecto Esteban MD Unavailable Unavailable Procedures Procedure Date INJECTION ANESTHETIC AND/OR STERIOD, TRANS EPIDURAL LUMB OR SACRAL,, SINGLE LEVE SURGICAL TRAY LOW OSMOLAR CONTRAST (200 TO 299 MG IODI NE) DEPO-MEDROL 80MG Advance Directives Directive Yes / No Effective Date File Name No Information Encounters Encounter Description Practice Location Reason(s) For Visit Diagnoses Date Provider Providers Copied on Encounter [facility], [address], [place], [place], [address], [place] tel:[phone] [facility] No Information [facility]. [address] , [place], [place], [address], [place]. tel:[phone] Referring Provider: Mp Alejandra DO, [address], [place], [address]. tel:[phone] Family History Family Member Type Diagnosis Age At Onset No Information Payers Payer name Insurance type Covered alliance party ID Authoriza tion(s) MEDICARE MB [id number] BCBS MDCR PPO ONLY ADVANTAGE CANDY [id number] Social History Type Description Quantity Date Captured Comments Sex Male Smoking Status No Information Chief Complaint And Reason For Visit No Information Reason For Referral Reason For Referral No Information History Of Present Illness Encounter Date Complaint History Of Prese nt Illness No Information Functional Status Date Functional Assessmen t No Information Instructions Date Instruction Additional Infor mation No Information Assessments Type Assessment Date No Information Patient Care Teams Name Effective Dates (start - stop) Status Members No Information
--- OUTSIDE RECORDS SUMMARY | 2024-12-06 10:24 | XMS_ITS | Referral Summary ---
Author Organization [facility] Address [address] [place] [address] Care Team Providers Care Chief Deputy Clerk/Bailiff Name Role Phone Karen Reed MD Primary Care Provider [phone] Allergies No known active allergies Medications ibuprofen (ibuprofen) 200 mg tab/cap Take 200 mg by mouth. Active sildenafil, antihypertensive , (REVATIO) 20 mg tabletIndication s:Pulmonary Arterial Hypertension TAKE 1-5 TABLETS 1 HOUR BEFORE INTERCOURSE 0 8 Active omega-3 fatty acids 1,000 mg capsule Take by mouth daily. Active ascorbic acid (ascorbic acid with sammy hips) 500 mg tablet Take 500 mg by mouth daily. Active multivitamin,tx- minerals capsule Take by mouth daily. Active celecoxib (CeleBREX) 200 mg capsule Take 1 capsule (200 mg total) by mouth 2 (two) times a day as needed for pain. 60 capsule 8 Active Active Problems No known active problems Social History Tobacco Use Types Packs/Day Years Used Date Smoking Tobacco: Never Smokeless Tobacco: Never Alcohol Use Standard Drinks/Week Comments Yes 0 (1 standard drink = 0.6 oz pur e alcohol) AUDIT-C Answer Date Recorded Q1: How often do you have a drink containing alc ohol? Monthly or less 07/13/2021 Q2: How many drinks containi ng alcohol do you have on a typical day when you are drinking? 1 or 2 07/13/2021 Frequency of Binge Drinking Not on file 06/26 Personal Safety Answer Date Recorded Getting School Help Needed Not on file 08/06 Sex and Gender Information Value Date Recorded Sex Assigned at Not on file Legal Sex Male 6:57 AM HEEL FINISHER Gender Identity Not on file Sexual Orientation Not on file Last Filed Vital Signs Vital Sign Reading Time Taken Comments Blood Pressure 124/76 07/01/2018 10:02 AM HEEL FINISHER Pulse 56 07/01/2018 10:02 AM HEEL FINISHER Temperature 37 C (98.6 F) 07/01/2018 10:02 AM HEEL FINISHER Respiratory Rate 18 07/01/2018 10:02 AM HEEL FINISHER Oxygen Saturation 98% 07/01/2018 10:02 AM HEEL FINISHER Inhaled Oxygen Concentration - - Weight 73.9 kg (163 lb) 07/24/2021 9:19 AM HEEL FINISHER Height 167.6 cm (5' 6 ) 07/24/2021 9:19 AM HEEL FINISHER Body Mass Index 26.31 07/24/2021 9:19 AM HEEL FINISHER Plan of Treatment Not on file Insurance MEDICARE ANTHEM MEDICARE HMO PPO [facility] MEDICARE [facility] MEDICARE SUPPLEMENT INSURANCE Care Teams Chief Deputy Clerk/Bailiff Relationship Specialty Start Date End Date Karen Reed MD [address] [place] [address] PCP - General Internal Medicine 07/01/18
--- OUTSIDE RECORDS SUMMARY | 2024-12-06 10:24 | XMS_ITS | Clinical Summary ---
Author Organization [facility] D Address [address] [place] [address] Care Team Providers Care Automatic Tire Tester Name Role Phone Karen Reed MD Primary Care Provider + [phone] Allergies No known active allergies Medications ibuprofen [...] Active Active Problems No known active problems Surgical History Surgery Date Site/Laterality Comments OTHER SURGICAL HISTORY tonsillectomy and adenoidectomy Medical History Medical History Date Comments Osteoarthritis BPH (benign prostatic hyperplasia) Ankylosing spondylitis (HCC) Family History Medical History Relation Name Comments Alcohol abuse Father Cancer Paternal Grandfather Relation Name Status Comments Father Mother Paternal Grandfather Social History Tobacco Use Types Packs/Day Years [...] on file Legal Sex Male 6:57 AM GRANULIZING MACHINE OPERATOR Gender Identity Not on file Sexual Orientation Not on file Obstetrics History Last Filed Vital Signs Vital Sign Reading Time Taken Comments Blood Pressure 124/76 07/01/2018 10:02 AM GRANULIZING MACHINE OPERATOR Pulse 56 07/01/2018 10:02 AM GRANULIZING MACHINE OPERATOR Temperature 37 C (98.6 F) 07/01/2018 10:02 AM GRANULIZING MACHINE OPERATOR Respiratory Rate 18 07/01/2018 10:02 AM GRANULIZING MACHINE OPERATOR Oxygen Saturation 98% 07/01/2018 10:02 AM GRANULIZING MACHINE OPERATOR Inhaled Oxygen Concentration - - Weight 73.9 kg (163 lb) 07/24/2021 9:19 AM GRANULIZING MACHINE OPERATOR Height 167.6 cm (5' 6 ) 07/24/2021 9:19 AM GRANULIZING MACHINE OPERATOR Body Mass Index 26.31 07/24/2021 9:19 AM GRANULIZING MACHINE OPERATOR Plan of Treatment Not on file Insurance MEDICARE [facility] MEDICARE HMO PPO [facility] MEDICARE CIG MEDICARE SUPPLEMENT INSURANCE Care Teams Automatic Tire Tester Relationship Specialty Start Date End Date Karen Reed MD [address] [place] [address] (work) PCP - General Internal Medicine 07/01/18
--- OUTSIDE RECORDS SUMMARY | 2024-12-06 10:24 | XMS_ITS | Continuity of Care Document ---
Author Organization [facility] Address [address] [place] [address] Phone Care Team Providers Care Elementary Classroom Teacher Name Role Phone Josh PT,MPT,ATC, Luther Unavailable Unavai lable Procedures Procedure Date Therapeutic Exercise Therapeutic Activities Manual Therapy Therapeutic Exercise Therapeutic Activities PT Evaluation Moderate Complexity Therapeutic Exercise Therapeutic Activities Advance Directives Directive Yes / No Effective Date File Name No Information Encounters Encounter Description Practice Location Reason(s) For Visit Diagnoses Date Provider Providers Copied on Encounter [facility], [place], [place], [id number], tel:[phone] [place] Pain in right hipStiffness of right hip, not elsewhere classifiedPain in thoracic spine 9 Josh Alcazar [place], [place]. Referring Provider: Access Direct. [facility], [place], [place], [id number], tel:[phone] [place] Pain in right hipStiffness of right hip, not elsewhere classifiedPain in thoracic spine 9 [place], [place]. Referring Provider: Access Direct. [facility], [place], [place], [address], tel:[phone] [place] Pain in right hipStiffness of right hip, not elsewhere classifiedPain in thoracic spine 201 9 [place], [place]. Referring Provider: [facility]. Family History Family Member Type Diagnosis Age At Onset No Information Payers Payer name Insurance type Covered libertarian ID Authoriza tion(s) Medicare [place] MB [id number] [facility] [id number] Social History Type Description Quantity Date Captured [...]
[2024-12-06 10:25] VITALS: BP 163/86; PULSE 67; RESP 18; TEMP 36.8; O2SAT 98
--- NOTE | 2024-12-06 10:37 | ED_ITS ---
HPI - General Adult General Chief complaint: Ear Stated complaint: LEFT JAW PAIN Time Seen by Provider: 12/06/24 10:24 History of Present Illness HPI narrative: Noe is a 78M with chronic low back pain that presented to the ED with pain in his left ear and jaw. It started yesterday and became worse throughout the night. No trauma reported. Related Data Allergies Allergy/AdvReac Type Severity Reaction Status Date / Time No Known Allergies Allergy Verified 12/06/24 10:45 Review of Systems Review of Systems: All systems reviewed & are unremarkable except as noted in HPI and below PMFSH Past Medical History Medical History Chronic back pain Social History Social History Smoking status: Never smoker Alcohol intake: current Exam Const: General: cooperative, healthy appearing, comfortable, no acute distress, well developed, alert, awake and Physically active Orientation/consciousness: oriented to person, oriented to place and oriented to time HENMT: Head: normal to inspection, normocephalic and atraumatic Ears: hearing grossly normal bilaterally and external ears normal Face/Nose/Sinus: Normal external nose present Other: -preauricular lymphadenopathy -cerumen impaction bilaterally -broken left upper molar with surroundin g erythema -No mastoid tenderness Eyes: General: appearance normal, both eyes and all related structures Periorbital: periorbital findings normal Sclera: sclerae normal Pupils: Equal, round and reactive pupils present Neck: Neck: normal visual inspection Other: left anterior cervical lymphadenopatny Chest: Chest palpation & inspection: normal inspection of the chest Resp: Effort & Inspection: normal respiratory effort, able to speak in complete sentences and no respiratory distress Cardio: Jugular venous distension: no JVD GI: Inspection: normal to inspection GI Palp: Yes Soft to palpation Auscultation: normal bowel sounds Skin: General skin exam: normal color and no rashes or lesions noted Neuro: General: oriented to person, oriented to place and oriented to time Cranial nerves: Yes Equal, round and reactive pupils present Extrem: General: normal to inspection Course Course Emergency Course: suspect pain is from dental infection. Given a dose of Augmentin. TM wnl after ears were irrigated. Discharge Plan Discharge Clinical Impression: Dental infection Patient Disposition: Home Condition: Stable Instructions: Antibiotic Form Patient Language: Salvadorean Prescriptions: New amoxicillin-pot clavulanate 875-125 mg tablet 1 tablet PO Q12H Qty: 10 0RF amoxicillin-pot clavulanate 875-125 mg tablet 1 tablet PO Q12H Qty: 10 0RF Follow-up/Referrals: Karen Reed MD [Primary Care Provider] -
[2024-12-06] MEDS: AMOXICILLIN/CLAVULANATE K 875-125 MG TAB 1 TABLET PO (10:41)
--- OUTSIDE RECORDS SUMMARY | 2024-12-06 10:48 | XMS_ITS | Clinical Summary ---
Author Organization [facility] Address [address] [place] [address] Care Team Providers Care Feeder Catcher Name Role Phone Karen Reed MD Primary Care Provider + [phone] Allergies No known active allergies Medications ibuprofen [...] on file Legal Sex Male 6:57 AM TOOL AND DIE INSPECTOR Gender Identity Not on file Sexual Orientation Not on file Obstetrics History Last Filed Vital Signs Vital Sign Reading Time Taken Comments Blood Pressure 124/76 07/01/2018 10:02 AM TOOL AND DIE INSPECTOR Pulse 56 07/01/2018 10:02 AM TOOL AND DIE INSPECTOR Temperature 37 C (98.6 F) 07/01/2018 10:02 AM TOOL AND DIE INSPECTOR Respiratory Rate 18 07/01/2018 10:02 AM TOOL AND DIE INSPECTOR Oxygen Saturation 98% 07/01/2018 10:02 AM TOOL AND DIE INSPECTOR Inhaled Oxygen Concentration - - Weight 73.9 kg (163 lb) 07/24/2021 9:19 AM TOOL AND DIE INSPECTOR Height 167.6 cm (5' 6 ) 07/24/2021 9:19 AM TOOL AND DIE INSPECTOR Body Mass Index 26.31 07/24/2021 9:19 AM TOOL AND DIE INSPECTOR Plan of Treatment Not on file Insurance MEDICARE [facility] MEDICARE HMO PPO [facility] MEDICARE CIG MEDICARE SUPPLEMENT INSURANCE Care Teams Feeder Catcher Relationship Specialty Start Date End Date Karen Reed MD [address] [place] [address] (work) PCP - General Internal Medicine 07/01/18
--- OUTSIDE RECORDS SUMMARY | 2024-12-06 10:48 | XMS_ITS | Continuity of Care Document ---
Author Organization [facility] Address [address] [place] [address] Phone Care Team Providers Care Transplant Case Manager Name Role Phone Perfecto Esteban MD Unavailable Unavailable Procedures Procedure Date INJECTION ANESTHETIC AND/OR STERIOD, TRANS EPIDURAL LUMB OR SACRAL,, SINGLE LEVE SURGICAL TRAY LOW OSMOLAR CONTRAST (200 TO 299 MG IODI NE) DEPO-MEDROL 80MG Advance Directives Directive Yes / No Effective Date File Name No Information Encounters Encounter Description Practice Location Reason(s) For Visit Diagnoses Date Provider Providers Copied on Encounter [facility], [address], [place], [place], [address], [place] tel:[phone] [facility] No Information [facility]. [address] , [place], [place], [address], [place]. tel:[phone] Referring Provider: Mp Alejandra DO, [address], [place], [address]. tel:[phone] Family History Family Member Type Diagnosis Age At Onset No Information Payers Payer name Insurance type Covered alliance party ID Authoriza tion(s) MEDICARE MB [id number] BCBS MDCR PPO ONLY ADVANTAGE CADNY [id number] Social History Type Description Quantity Date Captured [...]
--- OUTSIDE RECORDS SUMMARY | 2024-12-06 10:48 | XMS_ITS | Encounter Summary ---
Author Organization [facility] Address [address] [place] [address] Care Team Providers Care Manager Retirement Name Role Phone Unavailable Primary Care Provider Unavailabl e Encounter Details Date Type Department Care Team (Late st Contact Info) Description 12/15/1998 Outpatient Historical [facility] MARTELL & Prashanth Green MD Social History Tobacco Use Types Packs/Day Years Used Date Smoking Tobacco: Never Assessed Sex and Gender Information Value Date Recorded Sex Assigned at Not on file Legal Sex Male 4:08 AM ADVERTISING EDITOR Gender Identity Not on file Sexual Orientation Not on file documented as of this encounter Plan of Treatment Not on file documented as of this encounter Visit Diagnoses Not on filedocumented in this encounter
--- OUTSIDE RECORDS SUMMARY | 2024-12-06 10:48 | XMS_ITS | Clinical Summary ---
Author Organization [facility] Address [address] [place] [address] Care Team Providers Care On Site Coordinator Name Role Phone Unavailable Primary Care Provider Unavailabl e Source Comments [facility],non-owned Affiliates and Associated Physician Practices is amultiple site organization consisting of ambulatory clinics and hospital sitesin [place], [place], [place]. This disclosure is being madepursuant to the Care Everywhere program and may not contain all information available regarding this patient. Last updated 18.[facility] Social History Tobacco Use Types Packs/Day Years [...]
--- OUTSIDE RECORDS SUMMARY | 2024-12-06 10:48 | XMS_ITS | Clinical Summary ---
Author Organization [facility] Address [address] [place] [address] Care Team Providers Care Watch Repair Person Name Role Phone Karen Reed MD Primary Care Provider [phone] Active Problems Problem Noted Date Diagnosed Date [...] age to complete this topic Insurance MEDICARE [facility] Care Teams Watch Repair Person Relationship Specialty Start Date End Date Karen Reed MD [address] [place] [address] PCP - General INTERNAL MEDICINE 02/02/22
--- OUTSIDE RECORDS SUMMARY | 2024-12-06 10:48 | XMS_ITS | Referral Summary ---
Author Organization [facility] Address [address] [place] [address] Care Team Providers Care Multiple Spindle Screw Machine Operator Name Role Phone Karen Reed MD Primary Care Provider + [phone] Allergies No known active allergies Medications ibuprofen [...] on file Legal Sex Male 6:57 AM MIDDLE SCHOOL SPORTS COACH Gender Identity Not on file Sexual Orientation Not on file Last Filed Vital Signs Vital Sign Reading Time Taken Comments Blood Pressure 124/76 07/01/2018 10:02 AM MIDDLE SCHOOL SPORTS COACH Pulse 56 07/01/2018 10:02 AM MIDDLE SCHOOL SPORTS COACH Temperature 37 C (98.6 F) 07/01/2018 10:02 AM MIDDLE SCHOOL SPORTS COACH Respiratory Rate 18 07/01/2018 10:02 AM MIDDLE SCHOOL SPORTS COACH Oxygen Saturation 98% 07/01/2018 10:02 AM MIDDLE SCHOOL SPORTS COACH Inhaled Oxygen Concentration - - Weight 73.9 kg (163 lb) 07/24/2021 9:19 AM MIDDLE SCHOOL SPORTS COACH Height 167.6 cm (5' 6 ) 07/24/2021 9:19 AM MIDDLE SCHOOL SPORTS COACH Body Mass Index 26.31 07/24/2021 9:19 AM MIDDLE SCHOOL SPORTS COACH Plan of Treatment Not on file Insurance MEDICARE ANTHEM MEDICARE HMO PPO [facility] MEDICARE [facility] MEDICARE SUPPLEMENT INSURANCE Care Teams Multiple Spindle Screw Machine Operator Relationship Specialty Start Date End Date Karen Reed MD [address] [place] [address] PCP - General Internal Medicine 07/01/18
--- OUTSIDE RECORDS SUMMARY | 2024-12-06 10:48 | XMS_ITS | Continuity of Care Document ---
Author Organization [facility] Address [address] [place] [address] Phone Care Team Providers Care Glaze Handler Name Role Phone Josh PT,MPT,ATC, Luther Unavailable Unavai lable Procedures Procedure Date Therapeutic Exercise Therapeutic Activities Manual Therapy Therapeutic Exercise Therapeutic Activities PT Evaluation Moderate Complexity Therapeutic Exercise Therapeutic Activities Advance Directives Directive Yes / No Effective Date File Name No Information Encounters Encounter Description Practice Location Reason(s) For Visit Diagnoses Date Provider Providers Copied on Encounter [facility], [place], [place], [id number], tel:[phone] [place] Pain in right hipStiffness of right hip, not elsewhere classifiedPain in thoracic spine 9 Josh [place], [place]. Referring Provider: Access Direct. [facility], [place], [place], [id number], tel:[phone] [place] Pain in right hipStiffness of right hip, not elsewhere classifiedPain in thoracic spine 9 [place], [place]. Referring Provider: Access Direct. [facility], [place], [place], [id number], tel:[phone] [place] Pain in right hipStiffness of right hip, not elsewhere classifiedPain in thoracic spine 201 [address] [place], [place]. Referring Provider: Access Direct. Family History Family Member Type Diagnosis Age At Onset No Information Payers Payer name Insurance type Covered democrat ID Authoriza tion(s) Medicare [place] MB [id number] [facility] [id number] Social History Type Description Quantity Date Captured [...]
--- OUTSIDE RECORDS SUMMARY | 2024-12-06 10:48 | XMS_ITS | Clinical Summary ---
Author Organization [facility] Address [address] Attn: [address] [place] [place] [address] Care Team Providers Care Lamp Shades Supervisor Name Role Phone Unavailable Primary Care Provider Unavailabl e Social History Tobacco Use Types Packs/Day Years Used Date Smoking Tobacco: Never Assessed Sex and Gender Information Value Date Recorded Sex Assigned at Not on file Legal Sex Male 4:08 AM HEALTH INFORMATION SPECIALIST Gender Identity Not on file Sexual Orientation [...]
--- NOTE | 2024-12-06 10:51 | PC.NURSE ---
On 12/06/24, the student, [hemant collins ], provided care and completed [facility] documentation on this patient. I have reviewed the student's documentation and agree with the findings.
== END 2024-12-06 10:57 | disposition home or self-care (01) ==
LOC: CHSED 10:47
PROVIDERS: Emergency Provider Family Medicine; PCP Internal Medicine
DX: K04.7 Periapical abscess without sinus (principal)
CPT/HCPCS: 99283; A9270

== ENCOUNTER 2025-03-20 13:01 | Outpatient (CLI) | payer MEDICARE, SELFPAY ==
--- NOTE | ~2025-03-20 | MR_ITS ---
MRI of the bilateral hips Clinical history: Pain Technique: Coronal T1-weighted, T2-weighted, and proton-density fat-sat images, and axial T1-weighted and proton-density fat-sat images were acquired through the pelvis. Coronal T2-weighted images and c oronal, axial, and sagittal proton-density fat-sat images were acquired through the bilateral hip. Findings: There is no fracture or avascular necrosis of either hip. Bone marrow signals in the bilate ral proximal femora and pelvic bones are essentially unremarkable. There is focal moderate chondromal acia at the superolateral aspects of the bilateral hip joints. No significant osteophyte formation se en. No joint effusion either side. There is degenerative attenuation of the superolateral aspects of the acetabular labrum bilaterally. There is edematous change involving the right gluteus medius and minimus muscle bellies, compatible w ith low-grade muscle strain/contusion, some fluid along fascial plane between the 2 muscle bellies. V isualized tendons are intact. Remaining musculature unremarkable. No soft tissue mass evident. IMPRESSION: Edematous change involving the right gluteus medius and minimus muscle bellies as well as fluid along the intervening fascial plane, compatible with low to moderate grade muscle strain/injury. Mild degenerative change of both hip joints, as detailed above. Reviewed, dictated and finalized at location M. IMPRESSION: Edematous change involving the right gluteus medius and minimus muscle bellies as well as fluid along the intervening fascial plane, compatible with low to mo derate grade muscle strain/injury. Mild degenerative change of both hip joints, as detailed above.
--- OUTSIDE RECORDS SUMMARY | 2025-03-20 13:05 | XMS_ITS | Clinical Summary ---
Author Organization [facility] Address [address] Attn: Epic [address]relude [address] [place] [address] Care Team Providers Care Assistant Manager Of Operations Name Role Phone Unavailable Primary Care Provider Unavailabl e Social History Tobacco Use Types Packs/Day Years Used Date Smoking Tobacco: Never Assessed Sex and Gender Information Value Date Recorded Sex Assigned at Not on file Legal Sex Male 4:08 AM BARREL LEVELER Gender Identity Not on file Sexual Orientation Not on file Plan of Treatment Health Maintenance Due Date Last Done Comments DTAP/TDAP/TD VACCINES (1 - Tdap) 12/25/1966 PNEUMOCOCCAL VACCINE 50+ YEARS (1 of 1 - PCV) 12/25/18 98 ZOSTER VACCINE (1 of 2) 12/25/1997 RSV VACCINE (60+ or ) (1 - 1-dose 75+ series) 12/25/2022 INFLUENZA VACCINE (#1) 2025 Colorectal Cancer Screening Discontinued FIT/FOBT Q 1 year Discontinued 12/15/1998 COLORECTAL SCREENING Discontinued FIT-DNA Q 3 years Discontinued Flex Sig/CT Colonography Q 5 years Discontinued
--- OUTSIDE RECORDS SUMMARY | 2025-03-20 13:05 | XMS_ITS | Clinical Summary ---
Author Organization [facility] D Address [address] [place] [address] Care Team Providers Care Marine Service Station Attendant Name Role Phone Karen Reed MD Primary Care Provider + [phone] Allergies No known active allergies Medications ibuprofen [...] on file Legal Sex Male 6:57 AM SUPERINTENDENT COMMUNICATIONS Gender Identity Not on file Sexual Orientation Not on file Obstetrics History Last Filed Vital Signs Vital Sign Reading Time Taken Comments Blood Pressure 124/76 07/01/2018 10:02 AM SUPERINTENDENT COMMUNICATIONS Pulse 56 07/01/2018 10:02 AM SUPERINTENDENT COMMUNICATIONS Temperature 37 C (98.6 F) 07/01/2018 10:02 AM SUPERINTENDENT COMMUNICATIONS Respiratory Rate 18 07/01/2018 10:02 AM SUPERINTENDENT COMMUNICATIONS Oxygen Saturation 98% 07/01/2018 10:02 AM SUPERINTENDENT COMMUNICATIONS Inhaled Oxygen Concentration - - Weight 73.9 kg (163 lb) 07/24/2021 9:19 AM SUPERINTENDENT COMMUNICATIONS Height 167.6 cm (5' 6) 07/24/2021 9:19 AM SUPERINTENDENT COMMUNICATIONS Body Mass Index 26.31 07/24/2021 9:19 AM SUPERINTENDENT COMMUNICATIONS Plan of Treatment Not on file Insurance MEDICARE [facility] MEDICARE HMO PPO [facility] MEDICARE CIG MEDICARE SUPPLEMENT INSURANCE Care Teams Marine Service Station Attendant Relationship Specialty Start Date End Date Karen Reed MD [address] [place] [address] (work) PCP - General Internal Medicine 07/01/18
--- OUTSIDE RECORDS SUMMARY | 2025-03-20 13:05 | XMS_ITS | Clinical Summary ---
Author Organization [facility] Address [address] [place] [address] Care Team Providers Care Hose Sprayer Name Role Phone Karen Reed MD Primary Care Provider [phone] Active Problems Problem Noted Date Diagnosed Date [...] Date Last Done Comments Hepatitis C 12/25/1965 Pneumococcal Vaccine: 50+ Years (1 of 1 - PCV) 12/25/1997 Zoster Vaccines (1 of 2) 12/25/1997 Annual Medicare Wellness Visit 12/25/2012 RSV Immunization or 60+ Years (1 [...] age to complete this topic Insurance MEDICARE [facility] Care Teams Hose Sprayer Relationship Specialty Start Date End Date Karen Reed MD [address] [place] [address] PCP - General INTERNAL MEDICINE 02/02/22
--- OUTSIDE RECORDS SUMMARY | 2025-03-20 13:05 | XMS_ITS | Clinical Summary ---
Author Organization [facility] Address [address] [place] [address] Care Team Providers Care Solar Field Service Technician Name Role Phone Unavailable Primary Care Provider Unavailabl e Source Comments [facility],non-owned Affiliates and Associated Physician Practices is amultiple site organization consisting of ambulatory clinics and hospital sitesin [place], [place], [place] and [place]. This disclosure is being madepursuant to the Care Everywhere program and may not contain all information available regarding this patient. Last updated 18.[facility] [employer] Social History Tobacco Use Types Packs/Day Years [...] season) 2024 DEPRESSION SCREENING 08/26/2024 INFLUENZA VACCINE (#1) 2025 HEPATITIS B VACCINE Aged Out No [...]
--- OUTSIDE RECORDS SUMMARY | 2025-03-20 13:05 | XMS_ITS | Encounter Summary ---
Author Organization [facility] Address [address] [place] [address] Care Team Providers Care School Year Nanny Name Role Phone Unavailable Primary Care Provider Unavailabl e Encounter Details Date Type Department Care Team (Late st Contact Info) Description 12/15/1998 Outpatient Historical [facility] 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
--- OUTSIDE RECORDS SUMMARY | 2025-03-20 13:05 | XMS_ITS | Referral Summary ---
Author Organization [facility] D Address [address] [place] [address] Care Team Providers Care Senior Ecologist Name Role Phone Karen Reed MD Primary Care Provider + [phone] Allergies No known active allergies Medications ibuprofen [...] on file Legal Sex Male 6:57 AM LOSS PREVENTION OFFICER Gender Identity Not on file Sexual Orientation Not on file Last Filed Vital Signs Vital Sign Reading Time Taken Comments Blood Pressure 124/76 07/01/2018 10:02 AM LOSS PREVENTION OFFICER Pulse 56 07/01/2018 10:02 AM LOSS PREVENTION OFFICER Temperature 37 C (98.6 F) 07/01/2018 10:02 AM LOSS PREVENTION OFFICER Respiratory Rate 18 07/01/2018 10:02 AM LOSS PREVENTION OFFICER Oxygen Saturation 98% 07/01/2018 10:02 AM LOSS PREVENTION OFFICER Inhaled Oxygen Concentration - - Weight 73.9 kg (163 lb) 07/24/2021 9:19 AM LOSS PREVENTION OFFICER Height 167.6 cm (5' 6) 07/24/2021 9:19 AM LOSS PREVENTION OFFICER Body Mass Index 26.31 07/24/2021 9:19 AM LOSS PREVENTION OFFICER Plan of Treatment Not on file Insurance MEDICARE [employer] MEDICARE HMO PPO [facility] MEDICARE [facility] MEDICARE SUPPLEMENT INSURANCE Care Teams Senior Ecologist Relationship Specialty Start Date End Date Karen Reed MD [address] [place] [address] PCP - General Internal Medicine 07/01/18
== END 2025-03-20 13:02 | disposition home or self-care (01) ==
PROVIDERS: PCP Internal Medicine; Visit Provider Internal Medicine
DX: M16.0 Bilateral primary osteoarthritis of hip (principal)
CPT/HCPCS: 73721

== ENCOUNTER 2025-04-08 18:33 | Outpatient (CLI) | payer MEDICARE, SELFPAY ==
--- NOTE | ~2025-04-08 | XR_ITS ---
XR hip LT min 2V 04/08/2025 18:52 Indication: Left hip pain Procedure: 2 views left hip Comparison: No prior studies for comparison. Findings: There is moderate osteoarthritis of the left hip. No fracture, subluxation or dislocation. No soft tissue abnormality. No foreign bodies. Impression: 1: Moderate osteoarthritis of the left hip. Reviewed, dictated and finalized at location A. Impression: 1: Moderate osteoarthritis of the left hip.
--- NOTE | ~2025-04-08 | XR_ITS ---
XR hip RT 2V w AP pelvis 04/08/2025 18:51 Indication: Chronic hip pain Procedure: AP pelvis and 2 views right hip Comparison: 03/28/2023 Findings: Moderate bilateral osteoarthritis of the hips. There is lower lumbar spondylosis. Pelvic ri ngs intact. No acute fracture or traumatic malalignment. Impression: 1: Moderate osteoarthritis of the hips. Reviewed, dictated and finalized at location A. Impression: 1: Moderate osteoarthritis of the hips.
--- OUTSIDE RECORDS SUMMARY | 2025-04-08 18:36 | XMS_ITS | Clinical Summary ---
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
--- OUTSIDE RECORDS SUMMARY | 2025-04-08 18:36 | XMS_ITS | Clinical Summary ---
Author Organization [facility] Address [address] [place] [address] Care Team Providers Care Parakeet Raiser Name Role Phone Karen Reed MD Primary Care Provider [phone] Active Problems Problem Noted Date Diagnosed Date [...] age to complete this topic Insurance MEDICARE [facility] Care Teams Parakeet Raiser Relationship Specialty Start Date End Date Karen Rede MD [address] [place] [address] PCP - General INTERNAL MEDICINE 02/02/22
--- OUTSIDE RECORDS SUMMARY | 2025-04-08 18:36 | XMS_ITS | Clinical Summary ---
Author Organization [facility] D Address [address] [place] [address] Care Team Providers Care Pipelayer Name Role Phone Karen Reed MD Primary Care Provider + [phone] Allergies No known active allergies Medications ibuprofen [...] Osteoarthritis BPH (benign prostatic hyperplasia) Ankylosing spondylitis Family History Medical History Relation Name Comments [...] on file Legal Sex Male 6:57 AM LATHE SET UP PERSON Gender Identity Not on file Sexual Orientation Not on file Obstetrics History Last Filed Vital Signs Vital Sign Reading Time Taken Comments Blood Pressure 124/76 07/01/2018 10:02 AM LATHE SET UP PERSON Pulse 56 07/01/2018 10:02 AM LATHE SET UP PERSON Temperature 37 C (98.6 F) 07/01/2018 10:02 AM LATHE SET UP PERSON Respiratory Rate 18 07/01/2018 10:02 AM LATHE SET UP PERSON Oxygen Saturation 98% 07/01/2018 10:02 AM LATHE SET UP PERSON Inhaled Oxygen Concentration - - Weight 73.9 kg (163 lb) 07/24/2021 9:19 AM LATHE SET UP PERSON Height 167.6 cm (5' 6) 07/24/2021 9:19 AM LATHE SET UP PERSON Body Mass Index 26.31 07/24/2021 9:19 AM LATHE SET UP PERSON Plan of Treatment Not on file Insurance MEDICARE [facility] MEDICARE HMO PPO [facility] MEDICARE [employer] MEDICARE SUPPLEMENT INSURANCE Care Teams Pipelayer Relationship Specialty Start Date End Date Karen Reed MD [address] [place] [address] PCP - General Internal Medicine 07/01/18
--- OUTSIDE RECORDS SUMMARY | 2025-04-08 18:36 | XMS_ITS | Encounter Summary ---
Author Organization [facility] Address [address] [place] [address] Care Team Providers Care Industry Operations Investigator Name Role Phone Unavailable Primary Care Provider Unavailabl e Encounter Details Date Type Department Care Team (Late st Contact Info) Description 12/15/1998 Outpatient Historical HIS [facility] 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
--- OUTSIDE RECORDS SUMMARY | 2025-04-08 18:36 | XMS_ITS | Continuity of Care Document ---
Author Organization [facility] Address [address] [place] [address] Phone Care Team Providers Care Row Boss Hoeing Name Role Phone Perfecto Esteban MD Unavailable Unavailable Procedures Procedure Date INJECTION ANESTHETIC AND/OR STERIOD, TRANS EPIDURAL LUMB OR SACRAL,, SINGLE LEVE SURGICAL TRAY LOW OSMOLAR CONTRAST (200 TO 299 MG IODI NE) DEPO-MEDROL 80MG Advance Directives Directive Yes / No Effective Date File Name No Information Encounters Encounter Description Practice Location Reason(s) For Visit Diagnoses Date Provider Providers Copied on Encounter [facility], [address], [place], [place], [id number], [place] tel:[phone] [facility] No Information [place]. [address] , [place], [place], [id number], [place]. tel:[phone] Referring Provider: Mp Alejandra DO, [address], [place], [address]. tel:[phone] Family History Family Member Type Diagnosis Age At Onset No Information Payers Payer name Insurance type Covered alliance party ID Authoriza tion(s) MEDICARE MB [id number] BCBS MDCR PPO ONLY ADVANTAGE CANDY [id number] Social History Type Description Quantity Date Captured [...]
--- OUTSIDE RECORDS SUMMARY | 2025-04-08 18:36 | XMS_ITS | Continuity of Care Document ---
Author Organization [facility] Address [address] [place] [address] Phone Care Team Providers Care Energy Efficiency Specialist Name Role Phone Josh PT,MPT,ATC, Luther Unavailable Unavai lable Procedures Procedure Date Therapeutic Exercise Therapeutic Activities Manual Therapy Therapeutic Exercise Therapeutic Activities PT Evaluation Moderate Complexity Therapeutic Exercise Therapeutic Activities Advance Directives Directive Yes / No Effective Date File Name No Information Encounters Encounter Description Practice Location Reason(s) For Visit Diagnoses Date Provider Providers Copied on Encounter [facility], [place], [place], [id number], tel:[phone] [place] Pain in right hipStiffness of right hip, not elsewhere classifiedPain in thoracic spine 9 [place], [place]. Referring Provider: [facility], [place], [place], [id number], tel:[phone] [place] Pain in right hipStiffness of right hip, not elsewhere classifiedPain in thoracic spine 9 [place], [place]. Referring Provider: [facility]. [facility], [place], [place], [id number], tel:[phone] [place] Pain in right hipStiffness of right hip, not elsewhere classifiedPain in thoracic spine 201 [address] [place], [place]. Referring Provider: [facility]. Family History Family Member Type Diagnosis Age At Onset No Information Payers Payer name Insurance type Covered libertarian ID Authoriza tion(s) Medicare [place] MB [id number] [facility] [id number] Social History Type Description Quantity Date Captured [...]
--- OUTSIDE RECORDS SUMMARY | 2025-04-08 18:36 | XMS_ITS | Clinical Summary ---
Author Organization [facility] Address [address] [place] [address] Care Team Providers Care Custom Clothier Name Role Phone Unavailable Primary Care Provider Unavailabl e Source Comments [facility],non-owned Affiliates and Associated Physician Practices is amultiple site organization consisting of ambulatory clinics and hospital sitesin [place], [place], [place] and [place]. This disclosure is being madepursuant to the Care Everywhere program and may not contain all information available regarding this patient. Last updated 18.[facility] [employer] Social History Tobacco Use Types Packs/Day Years [...]
== END 2025-04-08 18:34 | disposition home or self-care (01) ==
LOC: CHSIMG 18:34
PROVIDERS: PCP Internal Medicine; Visit Provider Orthopaedic Surgery
DX: M25.551 Pain in right hip (principal); M16.0 Bilateral primary osteoarthritis of hip
CPT/HCPCS: 73502